=== PATIENT | male | born 1955 | race African-American/Black ===

== ENCOUNTER → 2017-06-05 | Outpatient (CLI) | payer BC ==
[~2017-06-05] VITALS: Ht 188 cm; Wt 112.4 kg
[~2017-06-05] MED LIST: FLOMAX0.4 MG PO; GUAIFENESIN WI120 ML PO; LIPITOR20 MG PO; OMEPRAZOLE40 M1 PO; STOMACH PILL PO
== END | disposition home or self-care (01) ==
LOC: AMB 05-22 11:30
DX: K59.00 Constipation, unspecified (principal); D12.3 Benign neoplasm of transverse colon; D12.2 Benign neoplasm of ascending colon; D12.4 Benign neoplasm of descending colon; D12.8 Benign neoplasm of rectum; Z86.010 Personal history of colon polyps; K64.8 Other hemorrhoids; E78.5 Hyperlipidemia, unspecified; F17.200 Nicotine dependence, unspecified, uncomplicated
CPT/HCPCS: 88305

== ENCOUNTER → 2017-07-30 | Outpatient (CLI) | payer BC | END | disposition home or self-care (01) | LOC: CDC 09:50 | DX: Z01.810 Encounter for preprocedural cardiovascular examination (principal); N40.1 Benign prostatic hyperplasia with lower urinary tract symptoms; N13.8 Other obstructive and reflux uropathy | CPT/HCPCS: 93000 ==